=== PATIENT | male | born 1965 | race Caucasian/White ===

== ENCOUNTER 2018-04-18 09:51 | Day surgery (SDC) | payer BC ==
[~2018-04-18] VITALS: Ht 177.8 cm; Wt 113.4 kg
[~2018-04-18 09:51] MED LIST: ALLO300 PO; ASPI325 PO; ASPI81CH PO; ASPI81EC PO; ATOR40TA; Bactrim Ds Tab1 EACH PO; CLON.5 PO; CLOP75 PO; Cipro500 MG PO; FAMO20 PO; Flagyl500 MG PO; Flonase 0.05% N16 GM; GABA300 PO; INSDET100; LIRA0.6P SC; LISI20; LISI5 PO; METF500 PO; MONT10T PO; NITR.4SL SL; Norco 5-325 Ta1 EACH PO; ONDA8 PO; OXYC5 PO; Omeprazole20 M1; PIOG15 PO; PRAV20 PO; PROM25 PO; TADA10TA; TRADJENTA5 MG PO; ZOLP10 PO
== END 2018-04-18 13:06 | disposition home or self-care (01) ==
LOC: ORSCSDS 09:51
PROVIDERS: Orthopaedic Surgery
PROC: 0JBK0ZZ Excision of Left Hand Subcutaneous Tissue and Fascia, Open Approach (ICD-10-PCS; principal; 2018-04-18 11:00)
DX: T81.31XA Disruption of external operation (surgical) wound, not elsewhere classified, initial encounter (principal); T75.89XS Other specified effects of external causes, sequela; I10 Essential (primary) hypertension; I25.10 Atherosclerotic heart disease of native coronary artery without angina pectoris; E11.9 Type 2 diabetes mellitus without complications; G47.33 Obstructive sleep apnea (adult) (pediatric); E78.00 Pure hypercholesterolemia, unspecified; E66.01 Morbid (severe) obesity due to excess calories; Z68.36 Body mass index [BMI] 36.0-36.9, adult; F17.210 Nicotine dependence, cigarettes, uncomplicated; Z79.899 Other long term (current) drug therapy
CPT/HCPCS: 82947; 87070; 87205; J0690; J2250; J3010; J7120

== ENCOUNTER 2018-07-03 13:31 | Day surgery (SDC) | payer BC | END 2018-07-03 14:45 | disposition home or self-care (01) | LOC: ATC 13:31 | DX: S61.201D Unspecified open wound of left index finger without damage to nail, subsequent encounter (principal); E11.9 Type 2 diabetes mellitus without complications; F17.210 Nicotine dependence, cigarettes, uncomplicated | CPT/HCPCS: 99214 ==

== ENCOUNTER 2018-07-08 00:03 | Day surgery (SDC) | payer BC | END 2018-07-08 14:55 | disposition home or self-care (01) | LOC: WOUND 00:03 | DX: T81.31XA Disruption of external operation (surgical) wound, not elsewhere classified, initial encounter (principal); S61.402A Unspecified open wound of left hand, initial encounter; E11.42 Type 2 diabetes mellitus with diabetic polyneuropathy; I10 Essential (primary) hypertension; J44.9 Chronic obstructive pulmonary disease, unspecified; I25.10 Atherosclerotic heart disease of native coronary artery without angina pectoris; G47.30 Sleep apnea, unspecified | CPT/HCPCS: 87070; 87075; 87205; G0463 ==

== ENCOUNTER 2018-07-15 08:43 | Day surgery (SDC) | payer BC | END 2018-07-15 22:43 | disposition home or self-care (01) | LOC: WOUND 08:43 | DX: Z48.01 Encounter for change or removal of surgical wound dressing (principal); S61.209D Unspecified open wound of unspecified finger without damage to nail, subsequent encounter; M65.322 Trigger finger, left index finger; E11.42 Type 2 diabetes mellitus with diabetic polyneuropathy; I10 Essential (primary) hypertension; J44.9 Chronic obstructive pulmonary disease, unspecified; I25.10 Atherosclerotic heart disease of native coronary artery without angina pectoris; G47.30 Sleep apnea, unspecified | CPT/HCPCS: G0463 ==

== ENCOUNTER 2019-01-26 10:22 | Inpatient (IN) | payer BC ==
[~2019-01-26] VITALS: Ht 180.3 cm; Wt 110.9 kg
[~2019-01-26 10:22] MED LIST changes: -ATOR40TA; +ROSUVASTATIN PO
[2019-01-26 12:27] LABS: BASOPHILS ABSOLUTE AUTO 0.05 K/mm3 (0.00-0.23); BASOPHILS PERCENT AUTO 0 % (0-2); EOSINOPHILS ABSOLUTE AUTO 0.01 K/mm3 (0.00-0.68); EOSINOPHILS PERCENT AUTO 0 % (0-6); Hematocrit 52.8 % (37.0-53.0); Hemoglobin 17.4 g/dL (13.5-17.5); IMMATURE GRAN ABSOLUTE AUTO 0.13 K/mm3 (0.00-0.10); IMMATURE GRAN PERCENT AUTO 1 % (0-1); LYMPHOCYTES ABSOLUTE AUTO 2.03 K/mm3 (0.84-5.20); LYMPHOCYTES PERCENT AUTO 9 % (21-46); MONOCYTES ABSOLUTE AUTO 1.37 K/mm3 (0.16-1.47); MONOCYTES PERCENT AUTO 6 % (4-13); Mean Corpuscular HGB 29.1 pg (26.0-34.0); Mean Corpuscular Volume 88 fL (80-100); Mean Platelet Volume 9.4 fL (9.1-12.4); NEUTROPHILS ABSOLUTE AUTO 18.76 K/mm3 (1.96-9.15); NEUTROPHILS PERCENT AUTO 84 % (41-73); Platelet Count 282 K/mm3 (150-400); RDW Coefficient Variation 13.4 % (11.7-14.2); RDW Standard Deviation 43.7 fL (35.1-46.3); Red Blood Cell Count 5.97 M/mm3 (4.30-5.90); White Blood Cell Count 22.35 K/mm3 (4.00-11.30)
[2019-01-26 12:38] LABS: Alanine Aminotransfer (ALT/SGP 33 U/L (12-78); Albumin/Globulin Ratio 0.9 (0.8-1.8); Alk Phos 98 U/L (50-136); Anion Gap 10 mmol/L (6-16); Aspartate Aminotrans (AST/SGOT 18 U/L (12-37); Bilirubin, Total 1.1 mg/dL (0.1-1.0); Blood Urea Nitrogen 17 mg/dL (8-24); Bun/Creatinine Ratio 22.2 (12.0-20.0); CO2, Blood 28 mmol/L (21-32); Calcium, Blood 9.5 mg/dL (8.5-10.1); Chloride, Blood 96 mmol/L (98-108); Creatinine, Blood 0.77 mg/dL (0.60-1.20); Globulin, Blood 4.6 g/dL (2.2-4.0); Glomerular Filtration Rate >60 (60-); Glucose, Blood 192 mg/dL (70-99); Potassium, Blood 3.9 mmol/L (3.5-5.5); Sodium, Blood 134 mmol/L (136-145); Total Protein, Blood 8.6 g/dL (6.4-8.2)
[2019-01-26] MEDS ORDERED: Prilosec Otc20 MG PO (14:05)
[2019-01-26] MEDS ORDERED: FARXIGA5 MG PO (14:05)
[2019-01-26] MEDS ORDERED: Humalog Mi100 UNIT/5 INJ ×2 (14:07→14:11)
[2019-01-26] MEDS ORDERED: LOSA50 PO (14:08)
[2019-01-26] MEDS ORDERED: ROSU10TA PO (14:09)
[2019-01-26] MEDS ORDERED: METO10 PO (14:09)
[2019-01-26 14:11] LABS: Source, Urine Clean Catch
[2019-01-26] MEDS ORDERED: CLIN300 PO (14:12)
[2019-01-26 14:21] LABS: Appearance, Urine Clear (Clear); Bilirubin, Urine Neg (Neg); Blood, Urine Neg (Neg); Color, Urine Yellow (P-Yellow); Glucose Qualitative, Urine 4+ (Neg); Ketones, Urine 4+ (Neg); Leukocyte Esterase, Urine Neg (Neg); Nitrite, Urine Neg (Neg); Protein, Urine 1+ (Neg); Specific Gravity, Urine 1.015 (1.003-1.022); Urobilinogen, Urine NORM (Normal); pH, Urine 6.5 (5.0-8.0)
[2019-01-26] MEDS ORDERED: TRULICITY0.75 MG/0. SC (19:56)
--- NOTE | 2019-01-26 20:40 | NUR ---
PT REQUESTED "ANYTHING OTHER THE FENTANYL FOR PAIN" AND A SLEEPING MED BUT "NOT AMBIEN OR TRAZADONE". HE'S ALSO REFUSING TELEMETRY AND SCD'S D/T HAVING NOT SLEPT IN 3 DAYS AND NOT WANTING TO BE "HOOKED TO ANYTHING". BULMARO ([employer]) MADE AWARE AND NEW ORDERS RECIEVED FOR DILUADID 1MG IV Q2P AND RESTORIL 7.5MG PO HS PRN. HE INSTRUCTED THAT PT CAN REFUSE HEART MONITORING BUT HE DOESN'T WANT TO D/C ORDER D/T POSSIBILITY OF SEPSIS AND SHOULD BE ON TELEMETRY RESULT. PT CONT'S TO REFUSE.
--- NOTE | 2019-01-26 22:06 | NUR ---
PT REFUSED TELEMETRY, LOVENOX INJECTION, FLU SHOT AND SCD'S.
--- NOTE | 2019-01-27 04:21 | NUR ---
SUMMARY: PT ARRIVED AT SHIFT CHANGE AND WAS ORIENTED TO ROOM AND CALL SYSTEM. HE IS A/OX4, INDEPENDENT AND SPECIFIES NEEDS. PT C/O ABDO PAIN THAT COMES/GOES IN "STABBING CONTRACTIONS BUT NEVER IS GONE ENTIRELY". HE REFUSED FENTANYL W/ NEW ORDER FOR DILUADID 1MG IV PRN WAS RECIEVED AND GIVEN X1 DOSE FOR TOLERABLE PAIN CONTROL. HE ALSO REQUESTED SLEEPING PILL W/RESTORIL 7.5MG PO AT HS PRN RX'D, MED GIVEN FOR GOOD EFFECT. HE C/O NOT SLEEPING AND LACKING APPETITE X3 DAYS D/T PAIN. HE REQUESTED TO BE LEFT ALONE AND DIDNT WANT TO HAVE "THINGS ATTACHED THAT WOULD MAKE SLEEPING DIFFICULT". RESULT HE REFUSED TELEMETRY, CONT BIOX AND SCD'S. HE ALSO REFUSED FLU VACCINE AND LOVENOX. LR WAS COMMENCED AND IV ABX PROVIDED. PT HASN'T HAD BM SO STAFF UNABLE TO OBTAIN STOOL SPECIMEN YET. HE HAD 2 IV'S PRESENT UPON T/F TO UNIT BUT ONLY L.FA IV HAD BEEN DOCUMENTED IN ER. NO ACUTE CHANGES, VSS/AFEBRILE. WILL MONITOR AND REPORT TO DAY RN.
[2019-01-27 04:55] LABS: Hematocrit 44.2 % (37.0-53.0); Hemoglobin 14.3 g/dL (13.5-17.5); Mean Corpuscular HGB 28.9 pg (26.0-34.0); Mean Corpuscular HGB Conc 32.4 g/dL (31.5-36.5); Mean Corpuscular Volume 89 fL (80-100); Platelet Count 198 K/mm3 (150-400); RDW Coefficient Variation 13.4 % (11.7-14.2); RDW Standard Deviation 43.6 fL (35.1-46.3); Red Blood Cell Count 4.95 M/mm3 (4.30-5.90)
[2019-01-27 05:48] LABS: Alanine Aminotransfer (ALT/SGP 20 U/L (12-78); Albumin, Blood 2.9 g/dL (3.4-5.0); Albumin/Globulin Ratio 0.9 (0.8-1.8); Alk Phos 69 U/L (50-136); Anion Gap 10 mmol/L (6-16); Aspartate Aminotrans (AST/SGOT 13 U/L (12-37); Bilirubin, Total 0.9 mg/dL (0.1-1.0); Blood Urea Nitrogen 17 mg/dL (8-24); Bun/Creatinine Ratio 25.3 (12.0-20.0); CO2, Blood 23 mmol/L (21-32); Calcium, Blood 7.9 mg/dL (8.5-10.1); Chloride, Blood 105 mmol/L (98-108); Creatinine, Blood 0.67 mg/dL (0.60-1.20); Globulin, Blood 3.4 g/dL (2.2-4.0); Glomerular Filtration Rate >60 (60-); Glucose, Blood 136 mg/dL (70-99); Potassium, Blood 3.6 mmol/L (3.5-5.5); Sodium, Blood 138 mmol/L (136-145)
[2019-01-27 06:08] LABS: Total Protein, Blood 6.3 g/dL (6.4-8.2)
--- NOTE | 2019-01-27 11:03 | NUR ---
NOTIFIED CHARGE PT STATES HE FEELS HE IS NOT RECEIVING ADEQUATE CARE AND REQUESTS TO LEAVE AMA. HE STATED ER STAFF WAS SHORT WITH HIS . [facility] NURSING STAFF ON NIGHT SEEMED UNCERTAIN ABOUT HIS MEDICATIONS. [facility] NURSING STAFF TOOK TOO LONG TO RESPOND TO HIS CALL BUTTON THIS MORNING. [facility] MEDICATION RECONCILIATION DONE ON ADMIT DID NOT RESULT IN HIM RECIEVING APPROPRIATE DOSES OF HIS HOME MEDICATIONS. I REQUESTED CHARGE COME TO THE PT'S ROOM TO SPEAK WITH THIS PT ABOUT HIS CONCERNS AND EXPERIENCE, ALONG WITH MYSELF. HOSPITALIST WAS INFORMED AND ENTERED DISCHARGE ORDERS FOR PT. PT IS CURRENTLY CALM AND COOPERATING WITH CARE UNTIL HIS DISCHARGE IS COMPLETED.
[2019-01-27] MEDS ORDERED: ATOR40TA PO (12:05)
[2019-01-27] MEDS ORDERED: METR500 PO (12:09)
[2019-01-27] MEDS ORDERED: CIPR500 PO (12:09)
[2019-01-27] MEDS ORDERED: SACC250C PO (12:09)
--- NOTE | 2019-01-27 13:36 | NUR ---
DISCHARGE NOTE PT'S DISCHARGE MEDICATIONS FAXED TO PREFERRED PHARMACY. PT PROVIDED WITH HARDCOPY AND VERBAL INSTRUCTIONS RE:DIAGNOSES, MEDICATIONS, FOLLOW UP APPOINTMENTS. PT'S IV'S BOTH DC'D WNL. PT'S PERSONAL BELONGINGS GATHERED AND SENT WITH PT. PT DRESSED IN HIS STREET CLOTHES. [employer] ESCORTED PT OUT VIA WHEELCHAIR. PT AND FAMILY HAD NO FURTHER QUESTIONS.
== END 2019-01-27 12:32 | disposition home or self-care (01) | DRG 872 ==
LOC: ER 10:22 → MEDS 15:37 → ENPENDDIS 01-27 10:50 → MEDS 01-27 12:32
PROVIDERS: Nurse Practitioner Acute Care; Physician Assistant; ADMIT Internal Medicine
DX: A41.9 Sepsis, unspecified organism (principal); A09 Infectious gastroenteritis and colitis, unspecified; E87.2 Acidosis; F11.20 Opioid dependence, uncomplicated; R65.20 Severe sepsis without septic shock; E11.9 Type 2 diabetes mellitus without complications; I25.10 Atherosclerotic heart disease of native coronary artery without angina pectoris; E66.01 Morbid (severe) obesity due to excess calories; Z79.4 Long term (current) use of insulin; I10 Essential (primary) hypertension; K76.0 Fatty (change of) liver, not elsewhere classified; F41.1 Generalized anxiety disorder; Z95.1 Presence of aortocoronary bypass graft; M10.9 Gout, unspecified; G89.29 Other chronic pain; M54.9 Dorsalgia, unspecified; F17.210 Nicotine dependence, cigarettes, uncomplicated; K57.90 Diverticulosis of intestine, part unspecified, without perforation or abscess without bleeding
CPT/HCPCS: 36415; 74177; 80053; 82947; 83605; 83690; 83735; 85025; 85027; 93005; 93010; 94762; 96365-59; 96367; 96375; 96376; 99285-25; C9113; J0696; J1170; J2405; J3010; J7030; J7120; Q9967

== ENCOUNTER 2021-02-18 10:20 | Emergency (ER) | payer BC ==
[~2021-02-18] VITALS: Ht 175.3 cm; Wt 120.2 kg
[~2021-02-18 10:20] MED LIST changes: +ATOR40TA PO; +CIPR500 PO; +CLIN300 PO; +FARXIGA5 MG PO; +Humalog Mi100 UNIT/5 INJ; +LOSA50 PO; +METO10 PO; +METR500 PO; +Prilosec Otc20 MG PO; +ROSU10TA PO; +SACC250C PO; +TRULICITY0.75 MG/0. SC
[2021-02-18 10:54] LABS: BASOPHILS ABSOLUTE AUTO 0.03 K/mm3 (0.00-0.23); BASOPHILS PERCENT AUTO 0 % (0-2); EOSINOPHILS ABSOLUTE AUTO 0.02 K/mm3 (0.00-0.68); EOSINOPHILS PERCENT AUTO 0 % (0-6); Hematocrit 47.9 % (37.0-53.0); Hemoglobin 16.8 g/dL (13.5-17.5); IMMATURE GRAN ABSOLUTE AUTO 0.07 K/mm3 (0.00-0.10); IMMATURE GRAN PERCENT AUTO 1 % (0-1); LYMPHOCYTES PERCENT AUTO 11 % (21-46); MONOCYTES ABSOLUTE AUTO 0.46 K/mm3 (0.16-1.47); MONOCYTES PERCENT AUTO 3 % (4-13); Mean Corpuscular HGB 30.3 pg (26.0-34.0); Mean Corpuscular HGB Conc 35.1 g/dL (31.5-36.5); Mean Corpuscular Volume 86 fL (80-100); Mean Platelet Volume 9.5 fL (9.1-12.4); NEUTROPHILS ABSOLUTE AUTO 11.28 K/mm3 (1.96-9.15); NEUTROPHILS PERCENT AUTO 85 % (41-73); Platelet Count 251 K/mm3 (150-400); RDW Coefficient Variation 12.9 % (11.7-14.2); RDW Standard Deviation 40.5 fL (35.1-46.3); Red Blood Cell Count 5.55 M/mm3 (4.30-5.90); White Blood Cell Count 13.36 K/mm3 (4.00-11.30)
[2021-02-18 11:11] LABS: Alanine Aminotransfer (ALT/SGP 42 U/L (12-78); Albumin, Blood 4.3 g/dL (3.4-5.0); Albumin/Globulin Ratio 1.3 (0.8-1.8); Alk Phos 90 U/L (50-136); Anion Gap 10 mmol/L (6-16); Aspartate Aminotrans (AST/SGOT 27 U/L (12-37); Bilirubin, Total 0.7 mg/dL (0.1-1.0); Blood Urea Nitrogen 15 mg/dL (8-24); Bun/Creatinine Ratio 16.7 (12.0-20.0); CO2, Blood 23 mmol/L (21-32); Calcium, Blood 9.3 mg/dL (8.5-10.1); Chloride, Blood 109 mmol/L (98-108); Globulin, Blood 3.3 g/dL (2.2-4.0); Glomerular Filtration Rate >60 (60-); Glucose, Blood 196 mg/dL (70-99); Potassium, Blood 3.9 mmol/L (3.5-5.5); Sodium, Blood 142 mmol/L (136-145); Total Protein, Blood 7.6 g/dL (6.4-8.2); Troponin I <0.015 ng/mL (0.000-0.040)
[2021-02-18 11:52] LABS: Source, Urine Clean Catch
[2021-02-18 11:56] LABS: Appearance, Urine Clear (Clear); Bilirubin, Urine Neg (Neg); Blood, Urine Neg (Neg); Color, Urine Yellow (P-Yellow); Glucose Qualitative, Urine 4+ (Neg); Ketones, Urine 4+ (Neg); Leukocyte Esterase, Urine Neg (Neg); Nitrite, Urine Neg (Neg); Protein, Urine Neg (Neg); Urobilinogen, Urine NORM (Normal)
== END 2021-02-18 14:28 | disposition home or self-care (01) ==
LOC: ER 10:20
PROVIDERS: Emergency Medicine; Physician Assistant
DX: E11.43 Type 2 diabetes mellitus with diabetic autonomic (poly)neuropathy (principal); K31.84 Gastroparesis; F17.200 Nicotine dependence, unspecified, uncomplicated; Z79.899 Other long term (current) drug therapy; Z79.82 Long term (current) use of aspirin; Z95.1 Presence of aortocoronary bypass graft; Z88.5 Allergy status to narcotic agent; Z91.09 Other allergy status, other than to drugs and biological substances
CPT/HCPCS: 36415; 80053; 81003; 83690; 84484; 85025; 93005; 93010; 96374; 96375; 99285-25; J2060; J2405; J2550; J7030

== ENCOUNTER 2021-02-20 08:52 | Emergency (ER) | payer BC ==
[~2021-02-20] VITALS: Ht 180.3 cm; Wt 115.7 kg
[2021-02-20 09:32] LABS: BASOPHILS ABSOLUTE AUTO 0.04 K/mm3 (0.00-0.23); BASOPHILS PERCENT AUTO 0 % (0-2); EOSINOPHILS ABSOLUTE AUTO 0.04 K/mm3 (0.00-0.68); EOSINOPHILS PERCENT AUTO 0 % (0-6); Hematocrit 50.1 % (37.0-53.0); Hemoglobin 17.3 g/dL (13.5-17.5); IMMATURE GRAN PERCENT AUTO 1 % (0-1); LYMPHOCYTES ABSOLUTE AUTO 2.05 K/mm3 (0.84-5.20); LYMPHOCYTES PERCENT AUTO 14 % (21-46); MONOCYTES ABSOLUTE AUTO 0.83 K/mm3 (0.16-1.47); MONOCYTES PERCENT AUTO 6 % (4-13); Mean Corpuscular HGB 30.3 pg (26.0-34.0); Mean Corpuscular HGB Conc 34.5 g/dL (31.5-36.5); Mean Corpuscular Volume 88 fL (80-100); Mean Platelet Volume 9.4 fL (9.1-12.4); NEUTROPHILS ABSOLUTE AUTO 11.88 K/mm3 (1.96-9.15); NEUTROPHILS PERCENT AUTO 79 % (41-73); Platelet Count 249 K/mm3 (150-400); RDW Standard Deviation 41.3 fL (35.1-46.3); Red Blood Cell Count 5.71 M/mm3 (4.30-5.90); White Blood Cell Count 14.94 K/mm3 (4.00-11.30)
[2021-02-20 09:45] LABS: Alanine Aminotransfer (ALT/SGP 38 U/L (12-78); Albumin, Blood 4.3 g/dL (3.4-5.0); Albumin/Globulin Ratio 1.3 (0.8-1.8); Alk Phos 89 U/L (50-136); Anion Gap 9 mmol/L (6-16); Aspartate Aminotrans (AST/SGOT 27 U/L (12-37); Bilirubin, Total 0.8 mg/dL (0.1-1.0); Blood Urea Nitrogen 15 mg/dL (8-24); Bun/Creatinine Ratio 18.5 (12.0-20.0); CO2, Blood 23 mmol/L (21-32); Calcium, Blood 8.9 mg/dL (8.5-10.1); Chloride, Blood 108 mmol/L (98-108); Creatinine, Blood 0.81 mg/dL (0.60-1.20); Globulin, Blood 3.3 g/dL (2.2-4.0); Glomerular Filtration Rate >60 (60-); Glucose, Blood 219 mg/dL (70-99); Potassium, Blood 3.9 mmol/L (3.5-5.5); Sodium, Blood 140 mmol/L (136-145); Total Protein, Blood 7.6 g/dL (6.4-8.2)
[2021-02-20] MEDS ORDERED: PROM12.5S PR (10:57)
== END 2021-02-20 11:44 | disposition home or self-care (01) ==
LOC: ER 08:52
PROVIDERS: Emergency Medicine
DX: E11.43 Type 2 diabetes mellitus with diabetic autonomic (poly)neuropathy (principal); K31.84 Gastroparesis; F17.200 Nicotine dependence, unspecified, uncomplicated; Z79.82 Long term (current) use of aspirin; Z79.899 Other long term (current) drug therapy; Z95.1 Presence of aortocoronary bypass graft
CPT/HCPCS: 36415; 80053; 82947; 83690; 85025; 96361; 96374; 96375; 99284-25; J1630; J2405; J7030

== ENCOUNTER 2022-01-11 07:53 | Emergency (ER) | payer BC ==
[~2022-01-11] VITALS: Ht 177.8 cm; Wt 111.1 kg
[~2022-01-11 07:53] MED LIST changes: +PROM12.5S PR
[2022-01-11] MEDS ORDERED: ONDA4 PO (09:10)
[2022-01-11] MEDS ORDERED: Ativan1 MG PO (09:10)
[2022-01-11 09:20] LABS: BASOPHILS ABSOLUTE AUTO 0.03 K/mm3 (0.00-0.23); BASOPHILS PERCENT AUTO 0 % (0-2); EOSINOPHILS ABSOLUTE AUTO 0.05 K/mm3 (0.00-0.68); EOSINOPHILS PERCENT AUTO 0 % (0-6); Hematocrit 48.1 % (37.0-53.0); Hemoglobin 16.6 g/dL (13.5-17.5); IMMATURE GRAN ABSOLUTE AUTO 0.05 K/mm3 (0.00-0.10); IMMATURE GRAN PERCENT AUTO 0 % (0-1); LYMPHOCYTES ABSOLUTE AUTO 1.91 K/mm3 (0.84-5.20); LYMPHOCYTES PERCENT AUTO 16 % (21-46); MONOCYTES ABSOLUTE AUTO 0.88 K/mm3 (0.16-1.47); MONOCYTES PERCENT AUTO 7 % (4-13); Mean Corpuscular HGB 29.7 pg (26.0-34.0); Mean Corpuscular HGB Conc 34.5 g/dL (31.5-36.5); Mean Corpuscular Volume 86 fL (80-100); Mean Platelet Volume 9.5 fL (9.1-12.4); NEUTROPHILS ABSOLUTE AUTO 9.32 K/mm3 (1.96-9.15); NEUTROPHILS PERCENT AUTO 76 % (41-73); Platelet Count 249 K/mm3 (150-400); RDW Standard Deviation 40.4 fL (35.1-46.3); Red Blood Cell Count 5.59 M/mm3 (4.30-5.90); White Blood Cell Count 12.24 K/mm3 (4.00-11.30)
[2022-01-11 09:31] LABS: Alanine Aminotransfer (ALT/SGP 57 U/L (12-78); Albumin/Globulin Ratio 1.1 (0.8-1.8); Alk Phos 112 U/L (50-136); Anion Gap 8 mmol/L (6-16); Aspartate Aminotrans (AST/SGOT 39 U/L (12-37); Bilirubin, Total 0.5 mg/dL (0.1-1.0); Blood Urea Nitrogen 20 mg/dL (8-24); Bun/Creatinine Ratio 22.9 (12.0-20.0); CO2, Blood 24 mmol/L (21-32); Calcium, Blood 9.2 mg/dL (8.5-10.1); Chloride, Blood 105 mmol/L (98-108); Creatinine, Blood 0.87 mg/dL (0.60-1.20); Globulin, Blood 3.6 g/dL (2.2-4.0); Glomerular Filtration Rate >60 (60-); Glucose, Blood 281 mg/dL (70-99); Potassium, Blood 4.2 mmol/L (3.5-5.5); Sodium, Blood 137 mmol/L (136-145); Total Protein, Blood 7.6 g/dL (6.4-8.2)
== END 2022-01-11 10:37 | disposition home or self-care (01) ==
LOC: ER 07:53
PROVIDERS: Emergency Medicine
DX: E11.65 Type 2 diabetes mellitus with hyperglycemia (principal); E11.43 Type 2 diabetes mellitus with diabetic autonomic (poly)neuropathy; K31.84 Gastroparesis; R10.9 Unspecified abdominal pain; I25.10 Atherosclerotic heart disease of native coronary artery without angina pectoris; I10 Essential (primary) hypertension; Z88.5 Allergy status to narcotic agent; Z91.048 Other nonmedicinal substance allergy status; Z79.4 Long term (current) use of insulin; Z79.899 Other long term (current) drug therapy; Z79.82 Long term (current) use of aspirin
CPT/HCPCS: 36415; 80053; 83690; 85025; 93005; 93010; 96374; 96375; 99284-25; J2060; J2405; J7030

== ENCOUNTER 2022-08-14 08:53 | Emergency (ER) | payer BC ==
[~2022-08-14] VITALS: Ht 177.8 cm; Wt 108.9 kg
[~2022-08-14 08:53] MED LIST changes: +Ativan1 MG PO; +ONDA4 PO
[2022-08-14 10:00] LABS: BASOPHILS ABSOLUTE AUTO 0.04 K/mm3 (0.00-0.23); BASOPHILS PERCENT AUTO 0 % (0-2); EOSINOPHILS ABSOLUTE AUTO 0.02 K/mm3 (0.00-0.68); EOSINOPHILS PERCENT AUTO 0 % (0-6); Hematocrit 50.6 % (37.0-53.0); IMMATURE GRAN ABSOLUTE AUTO 0.08 K/mm3 (0.00-0.10); IMMATURE GRAN PERCENT AUTO 1 % (0-1); LYMPHOCYTES ABSOLUTE AUTO 1.88 K/mm3 (0.84-5.20); LYMPHOCYTES PERCENT AUTO 14 % (21-46); MONOCYTES ABSOLUTE AUTO 0.94 K/mm3 (0.16-1.47); MONOCYTES PERCENT AUTO 7 % (4-13); Mean Corpuscular HGB 29.5 pg (26.0-34.0); Mean Corpuscular HGB Conc 35.6 g/dL (31.5-36.5); Mean Corpuscular Volume 83 fL (80-100); Mean Platelet Volume 9.1 fL (9.1-12.4); NEUTROPHILS ABSOLUTE AUTO 10.95 K/mm3 (1.96-9.15); NEUTROPHILS PERCENT AUTO 79 % (41-73); Platelet Count 294 K/mm3 (150-400); RDW Coefficient Variation 12.5 % (11.7-14.2); RDW Standard Deviation 37.8 fL (35.1-46.3); White Blood Cell Count 13.91 K/mm3 (4.00-11.30)
[2022-08-14 10:20] LABS: Albumin, Blood 4.5 g/dL (3.4-5.0); Albumin/Globulin Ratio 1.4 (0.8-1.8); Bilirubin, Total 0.5 mg/dL (0.1-1.0); Bun/Creatinine Ratio 22.2 (12.0-20.0); Calcium, Blood 9.6 mg/dL (8.5-10.1); Creatinine, Blood 0.85 mg/dL (0.60-1.20); Globulin, Blood 3.3 g/dL (2.2-4.0); Potassium, Blood 3.8 mmol/L (3.5-5.5); Total Protein, Blood 7.8 g/dL (6.4-8.2)
== END 2022-08-14 12:28 | disposition home or self-care (01) ==
LOC: ER 08:53
PROVIDERS: Physician Assistant
DX: R11.2 Nausea with vomiting, unspecified (principal); I10 Essential (primary) hypertension; E11.43 Type 2 diabetes mellitus with diabetic autonomic (poly)neuropathy; K31.84 Gastroparesis; I25.10 Atherosclerotic heart disease of native coronary artery without angina pectoris; Z88.5 Allergy status to narcotic agent; Z91.048 Other nonmedicinal substance allergy status; Z79.899 Other long term (current) drug therapy; Z79.4 Long term (current) use of insulin
CPT/HCPCS: 36415; 80053; 83690; 85025; 93005; 93010; 96374; 96375; 96376; 99283-25; J2060; J2405; J7030